=== PATIENT | male | born 2000 | race African-American/Black ===

== ENCOUNTER 2023-07-18 12:24 | Emergency (ER) | payer SELFPAY ==
[2023-07-18] MEDS: FENTANYL CITRATE/PF 50MCG/ML 2ML VIAL IV ONE (12:45)
[2023-07-18 13:10] VITALS: BP 142/79; PULSE 90; RESP 14
== END 2023-07-18 13:12 | disposition short-term general hospital (02) ==
LOC: ER 12:34
DX: S21.131A Puncture wound without foreign body of right front wall of thorax without penetration into thoracic cavity, initial encounter (principal); W34.09XA Accidental discharge from other specified firearms, initial encounter; Y93.89 Activity, other specified; Y92.89 Other specified places as the place of occurrence of the external cause; Y99.8 Other external cause status
CPT/HCPCS: 99291; 96374; 71045; J3010